=== PATIENT | male | born 1980 ===

== ENCOUNTER 2017-05-06 05:32 | Day surgery (SDC) | payer OTHER ==
--- NOTE | 2017-05-05 22:40 | Pre-Procedure Note/Attestation ---
Pre-Procedure Note/Attestation Complete Prior to Procedure Planned Procedure: not applicable Procedure Narrative: 1. Open reduction internal fixation nasal fracture 2. Septoplasty 3. Submucous resection right inferior turbinate 4. Submucous resection left inferior turbinate Indications for Procedure Pre-Operative Diagnosis: 1. Nasal fracture 2. Septal deviation 3. Hypertrophied right inferior turbinate 4. Hypertrophied left inferior turbinate Attestation I attest that I discussed the nature of the procedure; its benefits; risks and complications; and alternatives (and the risks and benefits of such alternatives ), prior to the procedure, with the patient (or the patient's legal manufacturer's representative). I attest that, if there was a reasonable possibility of needing a blood transfusion, the patient (or the patient's legal manufacturer's representative) was given the [facility] standardized written summary, pursuant to the [place] Blood Safety Act ([place] Health and Safety Code # 1645, as amended). I attest that I re-evaluated the patient just prior to the surgery and that there has been no change in the patient's H&P, job # [id number]: RA KUMAR May 05, 2017 22:40
[2017-05-06] VITALS (10 sets, daily range): BP systolic 126–145; BP diastolic 75–90
[~2017-05-06] VITALS: Ht 188 cm; Wt 83.9 kg
[2017-05-06] MEDS ORDERED: ZYRTEC10 M3 ORAL (06:08)
[2017-05-06] MEDS ORDERED: PROAIR HFA8.5 GM INH (06:08)
[2017-05-06] MEDS ORDERED: MULTIVITAMINS1 EAC2 ORAL (06:08)
[2017-05-06] MEDS ORDERED: Surgicel 4in x 8in TOPIC ONE (07:00)
[2017-05-06] MEDS ORDERED: Lidocaine 1% 10mg/ml/Epi 0.005mg/ml 30ml vial INJ ONE (07:01)
[2017-05-06] MEDS ORDERED: Bupivacaine w/Epi 0.5% 30ml Vial INJ ONE (07:01)
[2017-05-06] MEDS ORDERED: Cocaine 4% Vial TOPIC ONE (07:01)
[2017-05-06] MEDS ORDERED: NS Irrig 1000ml ONE (07:30)
[2017-05-06] MEDS ORDERED: Lidocaine 1% MPF 10mg/ml 5ml ONE (07:30)
[2017-05-06] MEDS ORDERED: Propofol 10mg/ml 20ml IV ONE (07:30)
[2017-05-06] MEDS ORDERED: Sterile Water Irrig 1000ml IRRIG ONE (07:30)
[2017-05-06] MEDS ORDERED: fentaNYL 250mcg/5ml ONE (07:30)
[2017-05-06] MEDS ORDERED: Dexamethasone 4mg/ml vial ONE (07:30)
[2017-05-06] MEDS ORDERED: LR 1000ml ONE (07:30)
[2017-05-06] MEDS ORDERED: Dexamethasone 4mg/ml vial IVP ONE (07:30)
[2017-05-06] MEDS ORDERED: LR 1000ml 1,000 ML IVLG SCH (07:57)
[2017-05-06] MEDS ORDERED: Atropine Inj 1mg/10ml Syr IV PRN (08:00)
[2017-05-06] MEDS ORDERED: oxyCODONE HCL/Acetaminophen 5/325mg ORAL PRN (08:00)
[2017-05-06] MEDS ORDERED: Midazolam 2mg/2ml Inj IVP PRN (08:00)
[2017-05-06] MEDS ORDERED: Norco 7.5mg/325mg tab ORAL PRN (08:00)
[2017-05-06] MEDS ORDERED: Ketorolac 60mg Inj IV PRN (08:00)
[2017-05-06] MEDS ORDERED: Ketorolac 30mg Inj IV PRN (08:00)
[2017-05-06] MEDS ORDERED: LORazepam Inj 2mg/ml 1ml IV PRN (08:00)
[2017-05-06] MEDS ORDERED: fentaNYL 100 mcg/2 mL IV PRN (08:00)
[2017-05-06] MEDS ORDERED: Norco 5mg/325mg tab ORAL PRN ×2 (08:00→09:00)
[2017-05-06] MEDS ORDERED: Meperidine 25mg/0.5ml Inj (FOR RIGORS ONLY) IV PRN (08:00)
[2017-05-06] MEDS ORDERED: Hydromorphone 0.5mg/0.5ml inj IVP PRN (08:00)
[2017-05-06] MEDS ORDERED: Metoclopramide 10mg/2ml Inj IVP PRN ×2 (08:00→09:00)
[2017-05-06] MEDS ORDERED: DiphenhydrAMINE 50mg/ml Inj IVP PRN (08:00)
--- NOTE | 2017-05-06 08:01 | Anethesia Preoperative Eval ---
Anesthesia Pre-op PMH/ROS General Date of Evaluation: May 06, 2017 Anesthesiologist: Filomena ASA Score: ASA 1 Mallampati Score Class I : Soft palate, uvula, fauces, pillars visible Class II: Soft palate, uvula, fauces visible Class III: Soft palate, base of uvula visible Class IV: Only hard plate visible Mallampati Classification: Class I Surgeon: Jose Diagnosis: Deviated Septum Surgical Procedure: Septoplasty, ORIF Deviated Septum, SMR Turbinates Anesthesia History: none Family History: no anesthesia problems Allergies: Coded Allergies: No Known Allergies (Unverified , 05/05/17) Medications: see eMAR Anesthesia Pre-op Phys. Exam Physician Exam Last Vital Signs Date Time Temp Pulse Resp B/P Pulse Ox O2 Delivery O2 Flow Rate FiO2 05/06/17 06:09 97.6 64 18 126/76 98 Room Air Constitutional: NAD Neurologic: CN 2-12 intact Cardiovascular: RRR Respiratory: CTA Gastrointestinal: S/NT/ND Airway Exam Mallampati Score: Class I MO: full ROM: full Teeth: intact Anesthesia Pre-op A/P Risk Assessment & Plan Assessment: ASA 1 Plan: GA Status Change Before Surgery: No Pre-Antibiotics Dru Gram Ancef IV Given Within 1 Hr of Incision: Yes Time Given: 07:41 Fareed Butt MD May 06, 2017 08:01
--- NOTE | 2017-05-06 08:02 | Immediate Post-Op Evaluation ---
Immediate Post-Op Evalulation Immediate Post-Op Evalulation Procedure: Septoplasty, ORIF Deviated Septum, SMR Turbinates Date of Evaluation: May 06, 2017 Time of Evaluation: 08:59 IV Fluids: 800 LR Blood Products: 0 Estimated Blood Loss: 50 Urinary Output: 0 Blood Pressure Systolic: 133 Blood Pressure Diastolic: 75 Pulse Rate: 73 Respiratory Rate: 16 O2 Sat by Pulse Oximetry: 100 Temperature (Fahrenheit): 97.5 Pain Score (1-10): 1 Nausea: No Vomiting: No Complications 0 Patient Status: awake, reacts, patent, extubated, none Hydration Status: adequate Dru Gram Ancef IV Given Within 1 Hr of Incision: Yes Time Given: 07:41 Fareed Butt MD May 06, 2017 08:02
--- NOTE | 2017-05-06 08:03 | 48 Hour Post Anesthesia Eval ---
Post Anesthesia Evaluation Procedure: Septoplasty, ORIF Deviated Septum, SMR Turbinates Date of Evaluation: May 06, 2017 Time of Evaluation: 11:06 Blood Pressure Systolic: 127 0: 72 Pulse Rate: 68 Respiratory Rate: 18 Temperature (Fahrenheit): 98.4 O2 Sat by Pulse Oximetry: 100 Airway: patent Nausea: No Vomiting: No Pain Intensity: 1 Hydration Status: adequate Cardiopulmonary Status: Stable Mental Status/LOC: patient returned to baseline Follow-up Care/Observations: 0 Post-Anesthesia Complications: 0 Follow-up care needed: ready to discharge Fareed Butt MD May 06, 2017 08:03
--- NOTE | 2017-05-06 08:45 | Pre-op HX & Phy Repo 2 SIG ---
DATE OF ADMISSION: 05/06/2017 NOTE: "POOR AUDIO QUALITY" DATE OF SURGERY: 05/06/2017 INDICATION FOR SURGERY: The patient is a 36-year-old male, who fractured his nose on 01/09/2017 when his dog headed him. As a child, he had exercise-induced asthma, which he no longer has as an adult. PAST MEDICAL HISTORY: Significant for broken toes and a dislocated shoulder. He does get exercise, takes supplements, vitamins. MEDICATIONS: He takes no medicines at this time. ALLERGIES: No known drug allergies. SOCIAL HISTORY: He is , no children. Denies alcohol and drugs. FAMILY HISTORY: diabetes, cancer, hypertension, asthma, and arthritis. PHYSICAL EXAMINATION: VITAL SIGNS: He is 74 inches, 182 pounds. BMI is 23.6. Blood pressure 120/80, temperature 98.6, heart rate 74, and respiratory rate 14. HEENT: Head, normocephalic. Eyes, PERRLA. EOMI. Lips, tongue, pharynx, and neck are all normal. Nose, he has an abrasion that is healed and discolored hypertrophied turbinates, Septal deviation 85% to right. Heart_WNL Abd_WNL Neuro WNL Ext-WNL -not done, not indicated-does have PMD who does this. ASSESSMENT: nasal fracture and septal deviation secondary to accident. He had nos difficulty breathing bilateral. Hypertrophied right and left inferior turbinates. PLAN: Open reduction and internal fixation of nasal fracture, septoplasty, submucous resection of right and left inferior turbinates. He has [place] and amoxicillin to take at home. He signed consent in my office over a week ago. We discussed the risks, benefits, and alternatives as well as signed consent and was given printed pre and postop instructions. Angel Garcia M.D. DR: DANNIELLE JOB#: [id number] CC: MAGNO
--- NOTE | 2017-05-06 08:55 | Brief Operative Note ---
Immediate Post Operative Note Operative Note Chief Complaint: Nasal deformity, nasal airway obstruction Pre-op Diagnosis: 1. Nasal fracture 2. Septal deviation 3. Hypertrophied right inferior turbinate 4. Hypertrophied left inferior turbinate Procedure: 1 ORIF nasal fracture 2. Septoplasty 3. SMR right inf. turbinate 4. SMR left inf. turbinate Post-op Diagnosis: same as pre-op Surgeon: Ra Kumar Egg Candler: none Additional Surgeons: none Anesthesiologist: Filomena Anesthesia: general Specimen: none Complications: none Condition: stable Estimated Blood Loss: volume - 50 cc Drains: none Packing: Stamberger nasal gel RA KUMAR May 06, 2017 08:55
[2017-05-06] MEDS ORDERED: ceFAZolin sod 1 GM in D5W 55 ML IV ONE (09:00)
[2017-05-06] MEDS ORDERED: HYDROmorphone 1mg/ml Carpuject SUBQ PRN (09:00)
--- NOTE | 2017-05-06 10:07 | Discharge Instructions ---
Discharge Instructions Discharge Instructions Follow up with: next Wed in m;y office-pt has appt already Diet: regular Resume Normal Activity?: No Activity: light activity Pneumonia Vaccine: pt refused vaccine Influenza Vaccine (Jun to Nov): pt refused vaccine Follow Up Orders Pt. has printed instructions as well as post op medication Rx reviewed and given to him at his pre op appt. Return to Work/School on: May 20, 2017 For Surgical Patients Contact your physician for: bleeding, pain, tenderness, redness, swelling, yellowish discharge in the op. site For Congestive Heart Failure Reminder Report to your physician any weight gain of 5 pounds or more in one week. RA KUMAR May 06, 2017 10:07
--- NOTE | 2017-05-06 17:02 | Operative Note - Dictated ---
DATE OF OPERATION: 05/06/2017 SURGEON: Angel Garcia M.D BOOK JACKET COVER MACHINE OPERATOR: None. ANESTHESIOLOGIST: Fareed Butt MD. Anesthesia: General LMA with 20 mL 1% lidocaine without epinephrine and Marcaine 0.5% with 1:200,000 epinephrine in a 50:50 mixture. Additionally, 4 mL of 4% topical cocaine were ready to go and placed on four nasal pledgets, which were accounted for at the end of the case, two in either nostril. INDICATION FOR SURGERY: The patient's dog headed him and broke his nose. He ended up with his nose off to the left, septal deviation off to the right, 85% blockage with bilateral hypertrophied inferior turbinates. PREOPERATIVE DIAGNOSIS: The patient's dog headed him and broke his nose. He ended up with his nose off to the left, septal deviation off to the right, 85% blockage with bilateral hypertrophied inferior turbinates. POSTOPERATIVE DIAGNOSIS: The patient's dog headed him and broke his nose. He ended up with his nose off to the left, septal deviation off to the right, 85% blockage with bilateral hypertrophied inferior turbinates. FINDINGS: The patient's dog headed him and broke his nose. He ended up with his nose off to the left, septal deviation off to the right, 85% blockage with bilateral hypertrophied inferior turbinates. PROCEDURE: Time-out was performed. All agreed as to the procedures and equipment indicated. He was injected with the aforementioned lidocaine, Marcaine, and epinephrine mixture and the cocaine pledgets were placed in each nostril. There also was a Betadine prep prior to the injections. I then proceeded to make an incision in either inferior turbinate elevated submucosally, place radiofrequency wand x2 on either inferior turbinate for 10 second setting after coating with saline gel. Then outfractured with a Boies elevator. I then made a Derek incision on the right septum with a 15 blade. Elevated with a [place]moore elevator subperiosteally, subperichondrially to the back of the septum. I then made an incision 1 cm posterior from the columellar strut and elevated on the contralateral side, which would be the left keeping that flap intact. I then proceeded to make a cut in the superior part of the septum to the back and gouge osteotome on the bottom and removed the fractured septum with a large straight [place]. The flap that had been opened on the right side of the septum was then sewn to the left side with a 4-0 plain suture. There was no perforation of the septum on the left side that is intact. I then made between the cartilage incisions with a 15 blade and the incision in lateral lower part of either naris. This was then followed by a freerer elevator and then a gouge osteotome to remove the medial fracture. This scar tissue was removed with a straight Keyonna. I then proceeded to make a lateral low osteotomy with a straight unguarded osteotome on either side from the lateral areas of incision. I then was able to fracture the nose, so there was no greenstick fracture. It was completely free. I then placed the nose back in the normal anatomic position. A rasp was used to clean off the edges in serial. I then proceeded to place skin prep and Steri-Strips to hold the nose in place and a stent was placed on that. Please note that I did not repair the scar on the anterior part of the nose because that can be done at a later date. It would be inappropriate to do at this time with a cast putting pressure on sutures of the scar, it does get revised. There was angled scissors to remove parts of the mid nose anteriorly at scar tissue wound fracture. Sponge and needle count was correct. ESTIMATED BLOOD LOSS: 50 mL. COUNTS: None. DRAINS: None. About 15 minutes after surgery after speaking with the patient's , I saw the patient again and he is stable in recovery room. No bleeding on the nasal drip pad and he does not seem to be draining any blood in the back on his prep. Angel Garcia M.D. DR: Hoang JOB#: [id number] CC: MAGNO
== END 2017-05-06 10:55 | disposition home or self-care (01) ==
LOC: SUR 05:32
DX: S02.2XXA Fracture of nasal bones, initial encounter for closed fracture (principal); W54.1XXA Struck by dog, initial encounter; Y92.89 Other specified places as the place of occurrence of the external cause; Y99.9 Unspecified external cause status; J34.2 Deviated nasal septum; J34.3 Hypertrophy of nasal turbinates
CPT/HCPCS: 30140; 30520; J0690; J1100; J2250; J2405; J2704; J3010; J7120; 94003; 94150